=== PATIENT | female | born 1970 | race Hispanic/Latino ===

== ENCOUNTER 2021-06-09 21:37 | Emergency (ER) | payer MEDICAID ==
[2021-06-09] MEDS ORDERED: ONDANSETRON 4 MG/2 ML INJ IV ONE (23:29)
[2021-06-09] MEDS ORDERED: SODIUM CHLORIDE 0.9% 1000 ML 1,000 ML IV ONE (23:29)
[2021-06-09] MEDS ORDERED: PROMETHAZINE 25 MG TAB PO ONE (23:30)
--- NOTE | 2021-06-10 00:04 | Emergency Department Report ---
ED General Adult HPI - General Chief complaint: Psych Stated complaint: MEDICAL RELEASE FOR DETOX Time Seen by Provider: 06/09/21 23:08 Source: patient Mode of arrival: Ambulatory Limitations: No Limitations - History of Present Illness Initial comments: The patient presents to the emergency department from [facility] for fentanyl withdrawal. Patient states that she takes approximately 500 mcg of fentanyl daily. Patient states she has been on this dose for the last year. 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 Patient states that she wants to get off of fentanyl thus the reasoning for going to treatment center. Patient states the treatment center sent her here for further evaluation. Patient denies chest pain, shortness breath, or headache. She does endorse nausea vomiting and abdominal cramping. -: Sudden Radiation: abdomen Severity scale (0 -10): 1 Quality: other (Cramping) Consistency: constant Improves with: none Worsens with: none Associated Symptoms: denies other symptoms Treatments Prior to Arrival: none - Related Data Previous Rx's Medication Instructions Recorded Last Taken Type Ondansetron [Zofran Odt] 4 mg PO Q4HR PRN #20 tab.rapdis 06/10/21 Unknown Rx Promethazine [Phenergan TAB] 25 mg PO Q6HR PRN #20 tab 06/10/21 Unknown Rx cloNIDine-TTS PATCH [Catapres-Tts 0.1 mg TD Q7D #1 patch 06/10/21 Unknown Rx 0.1MG Patch] Allergies Allergy/AdvReac Type Severity Reaction Status Date / Time fluoxetine [From Prozac] Allergy Unknown Verified 06/09/21 22:09 tetracycline Allergy Unknown Verified 06/09/21 22:09 ED Review of Systems ROS: Stated complaint: MEDICAL RELEASE FOR DETOX Other details as noted in HPI Comment: All other systems reviewed and negative Constitutional: denies: chills, fever Eyes: denies: eye pain, eye discharge, vision change ENT: denies: ear pain, throat pain Respiratory: denies: cough, shortness of breath, wheezing Cardiovascular: denies: chest pain, palpitations Endocrine: no symptoms reported Gastrointestinal: nausea, vomiting. denies: abdominal pain, diarrhea Genitourinary: denies: urgency, dysuria, discharge Musculoskeletal: denies: back pain, joint swelling, arthralgia Skin: denies: rash, lesions Neurological: denies: headache, weakness, paresthesias Psychiatric: denies: anxiety, depression Hematological/Lymphatic: denies: easy bleeding, easy bruising ED Past Medical Hx - Past Medical History Previous Medical History?: Yes Additional medical history: hep c - Surgical History Past Surgical History?: Yes Hx Cholecystectomy: Yes Additional Surgical History: eye ear hyst - Medications Home Medications: Home Medications Medication Instructions Recorded Confirmed Last Taken Type Ondansetron [Zofran Odt] 4 mg PO Q4HR PRN #20 tab.rapdis 06/10/21 Unknown Rx Promethazine [Phenergan TAB] 25 mg PO Q6HR PRN #20 tab 06/10/21 Unknown Rx cloNIDine-TTS PATCH [Catapres-Tts 0.1 mg TD Q7D #1 patch 06/10/21 Unknown Rx 0.1MG Patch] ED Physical Exam - General Limitations: No Limitations General appearance: alert, in no apparent distress - Head Head exam: Present: atraumatic, normocephalic - Eye Eye exam: Present: normal appearance, PERRL, EOMI - ENT ENT exam: Present: mucous membranes dry - Neck Neck exam: Present: normal inspection - Respiratory Respiratory exam: Present: normal lung sounds bilaterally. Absent: respiratory distress - Cardiovascular Cardiovascular Exam: Present: regular rate, normal rhythm. Absent: systolic murmur, diastolic murmur, rubs, gallop - GI/Abdominal GI/Abdominal exam: Present: soft, normal bowel sounds. Absent: distended, tenderness - Extremities Exam Extremities exam: Present: normal inspection - Back Exam Back exam: Present: normal inspection - Neurological Exam Neurological exam: Present: alert, oriented X3, CN II-XII intact. Absent: motor sensory deficit - Psychiatric Psychiatric exam: Present: normal affect, normal mood - Skin Skin exam: Present: warm, dry, intact, normal color. Absent: rash ED Course Vital Signs 06/09/21 06/09/21 06/10/21 22:06 23:51 00:47 Temperature 98.8 F Pulse Rate 95 H 86 81 Respiratory 16 20 Rate Blood Pressure 129/81 101/79 Blood Pressure 112/85 [Left] O2 Sat by Pulse 98 99 Oximetry ED Medical Decision Making - Medical Decision Making The patient has significant improvement of her symptoms with IV fluids, p.o. Catapres, and p.o. Phenergan as well as IV Zofran Critical care attestation.: If time is entered above; I have spent that time in minutes in the direct care of this critically ill patient, excluding procedure time. ED Disposition Clinical Impression: Opioid withdrawal Disposition: HOME / SELF CARE / HOMELESS Is pt being admited?: No Does the pt Need Aspirin: No Condition: Stable Instructions: Opioid Withdrawal Treatment Additional Instructions: Return if worse Prescriptions: cloNIDine-TTS PATCH [Catapres-Tts 0.1MG Patch] 0.1 mg TD Q7D #1 patch Promethazine [Phenergan TAB] 25 mg PO Q6HR PRN #20 tab PRN Reason: Nausea Ondansetron [Zofran Odt] 4 mg PO Q4HR PRN #20 tab.rapdis PRN Reason: Nausea Referrals: MARY SCHUSTER MD [Staff Physician] - 3-5 Days Time of Disposition: 01:17
[2021-06-10] MEDS: cloNIDine 0.1 MG TAB PO ONE ×2 (00:38→00:47)
[2021-06-10 01:57] VITALS: BP 107/83
== END 2021-06-10 01:30 | disposition home or self-care (01) ==
LOC: ED 21:37
DX: F11.23 Opioid dependence with withdrawal (principal); Z88.1 Allergy status to other antibiotic agents; Z88.8 Allergy status to other drugs, medicaments and biological substances
CPT/HCPCS: 96361; 96374; 99282; J2405; J7030; Q0169